=== PATIENT | male | born 1960 | race Caucasian/White ===

== ENCOUNTER 2021-11-18 11:49 | Inpatient (IN) | payer OTHER ==
[2021-11-18] MEDS ORDERED: guaiFENesin 200 MG/10 ML 10 ML UNIT-DOSE CUPS PO PRN (12:38)
[2021-11-18] MEDS ORDERED: P-EPHED 60MG/TRIPROLIDI 2.5MG TABLET PO PRN (12:38)
[2021-11-18] MEDS ORDERED: IBUPROFEN 400 MG TABLET (FP) PO PRN (12:38)
[2021-11-18] MEDS ORDERED: MAG HYDROX/AL HYDROX/SIMETH 30 ML UNIT-DOSE CUP PO PRN (12:38)
[2021-11-18] MEDS ORDERED: NICOTINE 10 MG CARTRIDGE (INHALER) IH PRN (12:38)
[2021-11-18] MEDS ORDERED: ACETAMINOPHEN 325 MG TABLET (FP) PO PRN (12:38)
[2021-11-18] MEDS ORDERED: MAGNESIUM CITRATE 300 ML BOTTLE PO PRN (12:38)
[2021-11-18] MEDS ORDERED: MAGNESIUM HYDROX 2400MG/30ML ORAL SUSPENSION 30 ML CUP PO PRN (12:38)
[2021-11-18] MEDS ORDERED: LOPERAMIDE HCL 2 MG CAPSULE PO PRN (12:38)
[2021-11-18] MEDS: PRENATAL VITAMINS W/ FOLIC ACID TABLET (FP) PO SCH (15:02)
[2021-11-18] MEDS: NICOTINE 7 MG/24 HOURS TOPICAL PATCH TD SCH (15:02)
[2021-11-18 15:12] LABS: HEMATOCRIT 42.1 % (35.4-49); HEMOGLOBIN 14.4 GM/dL (11.7-16.9); MCH 32.3 pg (25.7-33.7); MCHC 34.2 g/dl (32.0-35.9); MEAN CELL VOLUME 94.5 fl (80-96); MEAN PLT VOLUME 7.8 fl (7.5-11.1); PLATELET COUNT 218 10^3/uL (134-434); RBC 4.46 M/mm3 (4.00-5.60); RDW 13.9 % (11.9-15.9); WHITE BLOOD COUNT 5.3 K/mm3 (4.0-10.0)
[2021-11-18] MEDS: hydrOXYzine PAMOATE 25 MG CAPSULE (FP) PO SCH ×4 (15:14→21:13)
[2021-11-18 15:17] LABS: ALBUMIN 3.2 g/dl (3.4-5.0); BLOOD UREA NITROGEN 12.9 mg/dL (7-18)
[2021-11-18 15:18] LABS: CALCIUM 9.1 mg/dL (8.5-10.1)
[2021-11-18 15:20] LABS: CREATININE 0.9 mg/dL (0.55-1.3)
[2021-11-18 15:21] LABS: BILIRUBIN,TOTAL 0.2 mg/dL (0.2-1)
[2021-11-18 15:22] LABS: TOT PROT 6.8 g/dl (6.4-8.2)
[2021-11-18 19:41] LABS: SYPHILIS W/ RPR CONF NON-REACTIVE (NONREACTIVE)
[2021-11-18 20:06] LABS: PH,URINE 5.5 (5.0-8.0); URINE APPEARANCE CLEAR; URINE BILIRUBIN NEGATIVE (NEGATIVE); URINE COLOR YELLOW; URINE GLUCOSE (UA) NEGATIVE (NEGATIVE); URINE KETONE NEGATIVE (NEGATIVE); URINE LEUK ESTERASE NEGATIVE (NEGATIVE); URINE NITRITE NEGATIVE (NEGATIVE); URINE PROTEIN NEGATIVE (NEGATIVE); URINE UROBILINOGEN 0.2 mg/dL (0.2-1.0)
[2021-11-18] MEDS: MELATONIN 5 MG TABLETS PO SCH (21:13)
[2021-11-18] MEDS: risperiDONE 2 MG TABLET PO SCH (21:13)
[2021-11-18] MEDS: traZODone HCL 100 MG TABLET (FP) PO SCH (21:13)
[2021-11-18] MEDS: THIAMINE HCL 100 MG TABLET (FP) PO SCH (21:13)
[2021-11-19] MEDS: hydrOXYzine PAMOATE 25 MG CAPSULE (FP) PO SCH ×5 (06:03→21:01)
[2021-11-19] MEDS: ASPIRIN 81 MG CHEWABLE TABLETS PO SCH (09:50)
[2021-11-19] MEDS: amLODIPine BESYLATE 10 MG TABLET (FP) PO SCH (09:50)
[2021-11-19] MEDS: PRENATAL VITAMINS W/ FOLIC ACID TABLET (FP) PO SCH (09:50)
[2021-11-19] MEDS: risperiDONE 2 MG TABLET PO SCH ×2 (09:50→21:01)
[2021-11-19] MEDS: NICOTINE 7 MG/24 HOURS TOPICAL PATCH TD SCH (09:50)
[2021-11-19] MEDS ORDERED: amLODIPine BESYLATE 5 MG TABLET (FP) PO SCH (10:00)
[2021-11-19] MEDS ORDERED: buPROPion HCL 100 MG TABLET PO SCH (10:00)
[2021-11-19] MEDS: PANTOPRAZOLE 40 MG TABLET PO SCH (11:08)
[2021-11-19] MEDS: IBUPROFEN 400 MG TABLET (FP) PO SCH ×2 (11:08→22:45)
[2021-11-19 17:18] LABS: HIV INTERPRETATION NEGATIVE (NEGATIVE)
[2021-11-19] MEDS: traZODone HCL 100 MG TABLET (FP) PO SCH (21:00)
[2021-11-19] MEDS: THIAMINE HCL 100 MG TABLET (FP) PO SCH (21:00)
[2021-11-19] MEDS: MELATONIN 5 MG TABLETS PO SCH (21:01)
[2021-11-20] MEDS: hydrOXYzine PAMOATE 25 MG CAPSULE (FP) PO SCH ×5 (07:11→23:01)
[2021-11-20] MEDS: PRENATAL VITAMINS W/ FOLIC ACID TABLET (FP) PO SCH (09:50)
[2021-11-20] MEDS: NICOTINE 7 MG/24 HOURS TOPICAL PATCH TD SCH (09:50)
[2021-11-20] MEDS: ASPIRIN 81 MG CHEWABLE TABLETS PO SCH (09:51)
[2021-11-20] MEDS: amLODIPine BESYLATE 10 MG TABLET (FP) PO SCH (09:51)
[2021-11-20] MEDS: PANTOPRAZOLE 40 MG TABLET PO SCH (09:51)
[2021-11-20] MEDS: risperiDONE 2 MG TABLET PO SCH ×2 (09:51→23:01)
[2021-11-20] MEDS: IBUPROFEN 400 MG TABLET (FP) PO SCH ×2 (09:53→23:01)
[2021-11-20] MEDS: THIAMINE HCL 100 MG TABLET (FP) PO SCH (23:01)
[2021-11-20] MEDS: MELATONIN 5 MG TABLETS PO SCH (23:01)
[2021-11-20] MEDS: traZODone HCL 100 MG TABLET (FP) PO SCH (23:01)
[2021-11-21] MEDS: hydrOXYzine PAMOATE 25 MG CAPSULE (FP) PO SCH ×6 (06:46→21:14)
[2021-11-21] MEDS: ASPIRIN 81 MG CHEWABLE TABLETS PO SCH (09:57)
[2021-11-21] MEDS: amLODIPine BESYLATE 10 MG TABLET (FP) PO SCH (09:57)
[2021-11-21] MEDS: IBUPROFEN 400 MG TABLET (FP) PO SCH ×2 (09:58→21:14)
[2021-11-21] MEDS: PRENATAL VITAMINS W/ FOLIC ACID TABLET (FP) PO SCH (09:59)
[2021-11-21] MEDS: PANTOPRAZOLE 40 MG TABLET PO SCH (09:59)
[2021-11-21] MEDS: risperiDONE 2 MG TABLET PO SCH ×2 (09:59→21:14)
[2021-11-21] MEDS: NICOTINE 7 MG/24 HOURS TOPICAL PATCH TD SCH (09:59)
[2021-11-21] MEDS: traZODone HCL 100 MG TABLET (FP) PO SCH (21:14)
[2021-11-21] MEDS: THIAMINE HCL 100 MG TABLET (FP) PO SCH (21:14)
[2021-11-21] MEDS: MELATONIN 5 MG TABLETS PO SCH (21:15)
[2021-11-22] MEDS: hydrOXYzine PAMOATE 25 MG CAPSULE (FP) PO SCH ×5 (07:45→21:23)
[2021-11-22] MEDS: amLODIPine BESYLATE 10 MG TABLET (FP) PO SCH (09:52)
[2021-11-22] MEDS: ASPIRIN 81 MG CHEWABLE TABLETS PO SCH (09:52)
[2021-11-22] MEDS: PRENATAL VITAMINS W/ FOLIC ACID TABLET (FP) PO SCH (09:52)
[2021-11-22] MEDS: PANTOPRAZOLE 40 MG TABLET PO SCH (09:52)
[2021-11-22] MEDS: IBUPROFEN 400 MG TABLET (FP) PO SCH ×2 (09:52→21:22)
[2021-11-22] MEDS: risperiDONE 2 MG TABLET PO SCH ×2 (09:54→21:23)
[2021-11-22] MEDS: NICOTINE 7 MG/24 HOURS TOPICAL PATCH TD SCH (09:54)
[2021-11-22] MEDS: MELATONIN 5 MG TABLETS PO SCH (21:23)
[2021-11-22] MEDS: traZODone HCL 100 MG TABLET (FP) PO SCH (21:23)
[2021-11-22] MEDS: THIAMINE HCL 100 MG TABLET (FP) PO SCH (21:23)
[2021-11-23] MEDS: hydrOXYzine PAMOATE 25 MG CAPSULE (FP) PO SCH ×5 (06:05→21:13)
[2021-11-23] MEDS: PRENATAL VITAMINS W/ FOLIC ACID TABLET (FP) PO SCH (09:47)
[2021-11-23] MEDS: amLODIPine BESYLATE 10 MG TABLET (FP) PO SCH (09:48)
[2021-11-23] MEDS: risperiDONE 2 MG TABLET PO SCH ×2 (09:48→21:13)
[2021-11-23] MEDS: IBUPROFEN 400 MG TABLET (FP) PO SCH ×2 (09:48→21:15)
[2021-11-23] MEDS: PANTOPRAZOLE 40 MG TABLET PO SCH (09:48)
[2021-11-23] MEDS: ASPIRIN 81 MG CHEWABLE TABLETS PO SCH (09:48)
[2021-11-23] MEDS: NICOTINE 7 MG/24 HOURS TOPICAL PATCH TD SCH (09:50)
[2021-11-23] MEDS: MELATONIN 5 MG TABLETS PO SCH (21:13)
[2021-11-23] MEDS: THIAMINE HCL 100 MG TABLET (FP) PO SCH (21:13)
[2021-11-23] MEDS: traZODone HCL 100 MG TABLET (FP) PO SCH (21:15)
[2021-11-24] MEDS: hydrOXYzine PAMOATE 25 MG CAPSULE (FP) PO SCH ×5 (05:58→21:16)
[2021-11-24] MEDS: PRENATAL VITAMINS W/ FOLIC ACID TABLET (FP) PO SCH (09:57)
[2021-11-24] MEDS: PANTOPRAZOLE 40 MG TABLET PO SCH (09:58)
[2021-11-24] MEDS: NICOTINE 7 MG/24 HOURS TOPICAL PATCH TD SCH (09:58)
[2021-11-24] MEDS: amLODIPine BESYLATE 10 MG TABLET (FP) PO SCH (09:58)
[2021-11-24] MEDS: ASPIRIN 81 MG CHEWABLE TABLETS PO SCH (09:58)
[2021-11-24] MEDS: risperiDONE 2 MG TABLET PO SCH ×2 (09:59→21:16)
[2021-11-24] MEDS: IBUPROFEN 400 MG TABLET (FP) PO SCH ×2 (10:00→21:16)
[2021-11-24] MEDS: THIAMINE HCL 100 MG TABLET (FP) PO SCH (21:16)
[2021-11-24] MEDS: traZODone HCL 100 MG TABLET (FP) PO SCH (21:16)
[2021-11-24] MEDS: MELATONIN 5 MG TABLETS PO SCH (21:17)
[2021-11-25] MEDS: hydrOXYzine PAMOATE 25 MG CAPSULE (FP) PO SCH ×5 (05:59→21:06)
[2021-11-25] MEDS: ASPIRIN 81 MG CHEWABLE TABLETS PO SCH (09:49)
[2021-11-25] MEDS: PRENATAL VITAMINS W/ FOLIC ACID TABLET (FP) PO SCH (09:49)
[2021-11-25] MEDS: PANTOPRAZOLE 40 MG TABLET PO SCH (09:49)
[2021-11-25] MEDS: risperiDONE 2 MG TABLET PO SCH ×2 (09:49→21:06)
[2021-11-25] MEDS: NICOTINE 7 MG/24 HOURS TOPICAL PATCH TD SCH (09:49)
[2021-11-25] MEDS: amLODIPine BESYLATE 10 MG TABLET (FP) PO SCH (09:49)
[2021-11-25] MEDS: IBUPROFEN 400 MG TABLET (FP) PO SCH ×2 (09:51→22:15)
[2021-11-25] MEDS: THIAMINE HCL 100 MG TABLET (FP) PO SCH (21:06)
[2021-11-25] MEDS: traZODone HCL 100 MG TABLET (FP) PO SCH (21:06)
[2021-11-25] MEDS: MELATONIN 5 MG TABLETS PO SCH (21:06)
[2021-11-26] MEDS: hydrOXYzine PAMOATE 25 MG CAPSULE (FP) PO SCH ×5 (06:01→21:19)
[2021-11-26] MEDS: ASPIRIN 81 MG CHEWABLE TABLETS PO SCH (10:21)
[2021-11-26] MEDS: amLODIPine BESYLATE 10 MG TABLET (FP) PO SCH (10:21)
[2021-11-26] MEDS: IBUPROFEN 400 MG TABLET (FP) PO SCH ×2 (10:21→21:19)
[2021-11-26] MEDS: PRENATAL VITAMINS W/ FOLIC ACID TABLET (FP) PO SCH (10:22)
[2021-11-26] MEDS: risperiDONE 2 MG TABLET PO SCH ×2 (10:22→21:19)
[2021-11-26] MEDS: PANTOPRAZOLE 40 MG TABLET PO SCH (10:22)
[2021-11-26] MEDS: NICOTINE 7 MG/24 HOURS TOPICAL PATCH TD SCH (10:23)
[2021-11-26] MEDS: traZODone HCL 100 MG TABLET (FP) PO SCH (21:19)
[2021-11-26] MEDS: THIAMINE HCL 100 MG TABLET (FP) PO SCH (21:19)
[2021-11-26] MEDS: MELATONIN 5 MG TABLETS PO SCH (21:19)
[2021-11-26 22:24] VITALS: PULSE 85
[2021-11-27 07:04] VITALS: BP 127/78; TEMP 97.5
[2021-11-27] MEDS: hydrOXYzine PAMOATE 25 MG CAPSULE (FP) PO SCH ×2 (07:16→09:29)
[2021-11-27] MEDS: PRENATAL VITAMINS W/ FOLIC ACID TABLET (FP) PO SCH (09:27)
[2021-11-27] MEDS: amLODIPine BESYLATE 10 MG TABLET (FP) PO SCH (09:28)
[2021-11-27] MEDS: risperiDONE 2 MG TABLET PO SCH (09:28)
[2021-11-27] MEDS: PANTOPRAZOLE 40 MG TABLET PO SCH (09:28)
[2021-11-27] MEDS: NICOTINE 7 MG/24 HOURS TOPICAL PATCH TD SCH (09:28)
[2021-11-27] MEDS: ASPIRIN 81 MG CHEWABLE TABLETS PO SCH (09:29)
[2021-11-27] MEDS: IBUPROFEN 400 MG TABLET (FP) PO SCH (09:30)
== END 2021-11-27 09:30 | disposition home or self-care (01) | DRG 895 ==
LOC: YASAS 11:49 → Y5N 11:50
PROVIDERS: ADMIT Allergy & Immunology; ATTEND Allergy & Immunology
PROC: HZ42ZZZ Group Counseling for Substance Abuse Treatment, Cognitive-Behavioral (ICD-10-PCS; principal; 2021-11-18)
DX: F10.20 Alcohol dependence, uncomplicated (principal); F14.20 Cocaine dependence, uncomplicated; Z68.41 Body mass index [BMI] 40.0-44.9, adult; F17.210 Nicotine dependence, cigarettes, uncomplicated; F12.20 Cannabis dependence, uncomplicated; F31.9 Bipolar disorder, unspecified; I10 Essential (primary) hypertension; M17.0 Bilateral primary osteoarthritis of knee; E78.5 Hyperlipidemia, unspecified; E66.01 Morbid (severe) obesity due to excess calories; Z91.81 History of falling; Z99.89 Dependence on other enabling machines and devices
CPT/HCPCS: 36415; 80053; 81003; 85027; 86780; 86803; 87389

== ENCOUNTER 2022-12-09 22:17 | Emergency (ER) | payer OTHER ==
[2022-12-09 22:31] VITALS: RESP 20; BMI 23.6
[2022-12-10 00:18] LABS: BASO % 0.8 % (0-2.0); EOS % 4.9 % (0-4.5); HEMATOCRIT 42.5 % (35.4-49); HEMOGLOBIN 14.5 GM/dL (11.7-16.9); LYMPH % 29.6 % (8-40); MCH 32.1 pg (25.7-33.7); MCHC 34.1 g/dl (32.0-35.9); MEAN PLT VOLUME 7.4 fl (7.5-11.1); MONO % 12.7 % (3.8-10.2); PLATELET COUNT 280 10^3/uL (134-434); RBC 4.52 M/mm3 (4.00-5.60); RDW 14.1 % (11.9-15.9); WHITE BLOOD COUNT 7.5 K/mm3 (4.0-10.0)
[2022-12-10 00:25] LABS: INR 1.03 (0.83-1.09); PROTHROMBIN TIME (PATIENT) 11.9 SEC (9.7-13.0)
[2022-12-10 00:28] LABS: ACTIVATED PTT 33.1 SECONDS (25.2-36.5)
[2022-12-10 03:05] LABS: ALBUMIN 3.1 g/dl (3.4-5.0); BILIRUBIN,TOTAL 0.1 mg/dL (0.2-1); BLOOD UREA NITROGEN 7.5 mg/dL (7-18); CALCIUM 8.8 mg/dL (8.5-10.1); CREATININE 0.8 mg/dL (0.55-1.3); TOT PROT 6.8 g/dl (6.4-8.2)
[2022-12-10 05:57] VITALS: BP 123/66; PULSE 75; TEMP 99.1
== END 2022-12-10 07:00 | disposition home or self-care (01) ==
LOC: JER 22:17
DX: R07.9 Chest pain, unspecified (principal)
CPT/HCPCS: 0241U-QW; 36415; 71046-TC-FY; 80053; 84484; 85025; 85610; 85730; 93005; 93010; 99285-25

== ENCOUNTER 2024-02-12 01:35 | Emergency (ER) | payer OTHER ==
[2024-02-12 01:49] VITALS: BMI 23.3
[2024-02-12] MEDS: LIDOCAINE 5% TOPICAL PATCH TP ONE (02:19)
[2024-02-12] MEDS: KETOROLAC TROMETHAMINE 30 MG/1 ML VIAL IM ONE (02:19)
[2024-02-12] MEDS: ACETAMINOPHEN 325 MG TABLET (FP) PO ONE (02:19)
[2024-02-12] MEDS: LIDOCAINE PATCH REMOVAL MC SCH (02:20)
[2024-02-12] MEDS ORDERED: ACETAMINOPHEN 325 MG TABLET (FP) ONE (02:25)
[2024-02-12] MEDS ORDERED: LIDOCAINE 4% PATCH TP ONE (02:26)
[2024-02-12] MEDS ORDERED: KETOROLAC TROMETHAMINE 30 MG/1 ML VIAL ONE (02:26)
[2024-02-12] MEDS: LIDOCAINE PATCH REMOVAL MC ONE (05:40)
[2024-02-12 10:53] VITALS: BP 123/75; PULSE 75; RESP 18; TEMP 98.1
[2024-02-12 11:26] LABS: BASO % 1.6 % (0-2.0); EOS % 1.9 % (0-4.5); HEMATOCRIT 38.6 % (35.4-49); MCH 32.5 pg (25.7-33.7); MCHC 33.7 g/dl (32.0-35.9); MEAN CELL VOLUME 96.3 fl (80-96); MEAN PLT VOLUME 6.6 fl (7.5-11.1); MONO % 10.3 % (3.8-10.2); NEUT % 53.2 % (42.8-82.8); PLATELET COUNT 243 10^3/uL (134-434); RBC 4.01 M/mm3 (4.00-5.60); RDW 15.5 % (11.9-15.9); WHITE BLOOD COUNT 3.7 K/mm3 (4.0-10.0)
[2024-02-12 11:31] LABS: PH,URINE 5.5 (5.0-8.0); URINE APPEARANCE CLEAR; URINE BILIRUBIN NEGATIVE (NEGATIVE); URINE COLOR YELLOW; URINE GLUCOSE (UA) NEGATIVE (NEGATIVE); URINE KETONE NEGATIVE (NEGATIVE); URINE LEUK ESTERASE NEGATIVE (NEGATIVE); URINE NITRITE NEGATIVE (NEGATIVE); URINE PROTEIN NEGATIVE (NEGATIVE); URINE UROBILINOGEN 0.2 mg/dL (0.2-1.0)
[2024-02-12 11:59] LABS: POTASSIUM 4.2 mmol/L (3.5-5.1)
[2024-02-12 12:01] LABS: ALBUMIN 3.1 g/dl (3.4-5.0); CALCIUM 8.3 mg/dL (8.5-10.1); MAGNESIUM 1.9 mg/dL (1.8-2.4)
[2024-02-12 12:02] LABS: BLOOD UREA NITROGEN 9.4 mg/dL (7-18)
[2024-02-12 12:04] LABS: CREATININE 0.7 mg/dL (0.55-1.3)
[2024-02-12 12:06] LABS: BILIRUBIN,TOTAL 0.4 mg/dL (0.2-1); TOT PROT 6.3 g/dl (6.4-8.2)
== END 2024-02-12 14:54 | disposition home or self-care (01) ==
LOC: JER 01:35
PROC: 3E0233Z Introduction of Anti-inflammatory into Muscle, Percutaneous Approach (ICD-10-PCS; principal; 2024-02-12)
DX: M54.50 Low back pain, unspecified (principal); F10.90 Alcohol use, unspecified, uncomplicated
CPT/HCPCS: 36415; 70450-TC; 71045-TC-FY; 80053; 81003; 83735; 85025; 93005; 93010; 96372; 99285-25